=== PATIENT | male | born 1980 | race Caucasian/White ===

== ENCOUNTER 2017-09-26 19:31 | Emergency (ER) | END 2017-09-26 22:50 | disposition home or self-care (01) ==

== ENCOUNTER 2017-09-30 18:10 | Emergency (ER) | END 2017-09-30 22:22 | disposition home or self-care (01) ==

== ENCOUNTER 2018-02-18 09:39 | Day surgery (SDC) | END 2018-02-18 12:10 | disposition home or self-care (01) ==